=== PATIENT | male | born 1995 | race Caucasian/White ===

== ENCOUNTER 2017-01-08 04:59 | Emergency (ER) | payer OTHER ==
[~2017-01-08] VITALS: Ht 190.5 cm; Wt 84.1 kg
[~2017-01-08 04:59] MED LIST: ADDERALL20 MG PO; RITALIN LA20 MG PO
[2017-01-08 05:00] VITALS: TEMP 36.3
[2017-01-08] MEDS ORDERED: ADDERALL15 MG PO (05:05)
[2017-01-08 07:18] VITALS: BP 125/75; PULSE 92
== END 2017-01-08 07:35 | disposition home or self-care (01) ==
LOC: COL.ER 04:59
DX: S01.81XA Laceration without foreign body of other part of head, initial encounter (principal); F10.129 Alcohol abuse with intoxication, unspecified; W01.10XA Fall on same level from slipping, tripping and stumbling with subsequent striking against unspecified object, initial encounter; Y92.009 Unspecified place in unspecified non-institutional (private) residence as the place of occurrence of the external cause

== ENCOUNTER 2017-01-15 16:50 | Emergency (ER) | payer OTHER ==
[~2017-01-15 16:50] MED LIST changes: +ADDERALL15 MG PO
[2017-01-15 17:04] VITALS: BP 132/79; PULSE 78; TEMP 98.6
== END 2017-01-15 17:15 | disposition home or self-care (01) ==
LOC: COL.ER 16:50
DX: Z48.02 Encounter for removal of sutures (principal)

== ENCOUNTER 2019-02-02 22:48 | Emergency (ER) | payer BC ==
[~2019-02-02] VITALS: Ht 190.5 cm; Wt 77.3 kg
[2019-02-02 23:56] VITALS: BP 139/87; PULSE 99; TEMP 98.1
== END 2019-02-03 00:01 | disposition home or self-care (01) ==
LOC: COL.ER 22:48
DX: F41.9 Anxiety disorder, unspecified (principal); F19.10 Other psychoactive substance abuse, uncomplicated; R29.0 Tetany; F32.9 Major depressive disorder, single episode, unspecified; F90.9 Attention-deficit hyperactivity disorder, unspecified type